=== PATIENT | female | born 1945 | race Hispanic/Latino ===

== ENCOUNTER 2018-05-30 09:40 | Emergency (ER) | payer MEDICARE ==
[~2018-05-30] VITALS: Ht 160 cm; Wt 63.5 kg
[~2018-05-30 09:40] MED LIST: LOPRESSOR25 MG PO; METRONIDAZOLE500 MG PO; ULTRAM50 MG PO
--- OUTSIDE RECORDS SUMMARY | 2018-05-30 09:43 | XMS REPORT ---
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 Allergies, Adverse Reactions, Alerts This patient has no known allergies or adverse reactions. Medications This patient has no known medications. Results Test Description Test Time Test Comments Text Results Atomic Results Result Comments CT BRAIN WO [place] [address] Patient Name: ANDREA SMITH MR #: [id number] : 1945 Age/Sex: 71/F Req #: [id number] Adm Physician: Ordered by: HARSHA MUELLER MD Report #: [id number] Location: ER Room/Bed: Procedure: [id number] CT/CT BRAIN WO Exam Date: Exam Time: REPORT STATUS: Signed EXAMINATION: Head CT without contrast. HISTORY:Headache. COMPARISON:None. TECHNIQUE: Multidetector axial images were obtained from the foramen magnum to the vertex without contrast. The images were reconstructed using brain and bone algorithms. Thin section brain images were reformatted into coronal and sagittal planes. Intravenous contrast: None IMAGE QUALITY: Acceptable. FINDINGS: Skull/scalp: No abnormality. Parenchyma: Nonspecific bilateral frontoparietal patchy white matter hypodensity are likely related to small vessel ischemic changes. No acute hemorrhage, mass or acute major vascular territorial infarct. Arteries: Atherosclerotic calcification bilateral carotid siphon and V4 segment of right vertebral artery. Dural sinuses: No abnormal density suggestive of thrombosis. Ventricles: Mild compensated dilatation due to volume loss. No hydrocephalus. Extra-axial spaces: No abnormal density. Brain volume: Normal for age. Craniocervical junction: No mass, Chiari malformation, or basilar invagination. Sella: No mass. Paranasal/mastoid sinuses: Partial opacification and sclerosis of left mastoid air cells possibly related to chronic inflammatory process. IMPRESSION: No acute intracranial abnormality, particularly no acute hemorrhage, mass or acute major vascular territorial infarct. Mild supratentorial white matter microvascular ischemic changes. Signed by: Dr. Joyce Callahan M.D. on 06/07/2017 10:53 PM Dictated By: JOYCE CALLAHAN MD 53 Transcribed By: RITA on 06/07/172252 COPY TO: HARSHA MUELLER MD
[2018-05-30 10:14] VITALS: BP 177/85
== END 2018-05-30 10:58 | disposition home or self-care (01) ==
LOC: ER 09:40
DX: R05 Cough (principal); R51 Headache; J06.9 Acute upper respiratory infection, unspecified
CPT/HCPCS: 99282